=== PATIENT | male | born 1955 | race Two or more races ===

== ENCOUNTER 2019-09-18 07:55 | Outpatient (CLI) | payer MEDICARE, OTHER | END 2019-09-18 23:59 | disposition home or self-care (01) | LOC: WOU 07:55 | PROVIDERS: ATTEND Podiatrist Foot & Ankle Surgery | DX: Z09 Encounter for follow-up examination after completed treatment for conditions other than malignant neoplasm (principal); Z86.31 Personal history of diabetic foot ulcer; E11.69 Type 2 diabetes mellitus with other specified complication; M86.671 Other chronic osteomyelitis, right ankle and foot; Z79.4 Long term (current) use of insulin; B35.3 Tinea pedis; Z89.431 Acquired absence of right foot | CPT/HCPCS: G0463 ==